=== PATIENT | female | born 1965 | race African-American/Black ===

== ENCOUNTER 2017-12-28 10:09 | Emergency (ER) | payer MEDICARE, OTHER ==
[2017-12-28] MEDS ORDERED: Sodium Chloride 0.9% 10 ML Syringe FLUSH PRN (10:37)
[2017-12-28] MEDS ORDERED: Famotidine 20 MG/2 ML SDV IVPUSH ONE (10:38)
[2017-12-28] MEDS ORDERED: Alum Hydrox/Mag Hydrox/Simeth 30 ML, Lidocaine 2% 15 ML PO ONE ×2 (10:38)
--- NOTE | 2017-12-28 11:12 | EDM.PDOC ---
ED HPI GENERAL MEDICAL PROBLEM - General Chief Complaint: Cardiovascular Problem Stated Complaint: HEADACHE SENT FROM CLINIC Time Seen by Provider: 12/28/17 10:32 Source of Information: Reports: Patient History Limitations: Reports: No Limitations - History of Present Illness INITIAL COMMENTS - FREE TEXT/NARRATIVE: The patient presents with a headache, heart burn and elevated blood pressure. The headache started about 4 days ago. It is located in the left side of her head. It is not severe it is just annoying. She denies any numbness or weakness. She has had headaches like this before when her blood pressure was up and they did some changes and she was better after that. She also has some heart burn in the mid chest. This started about 3 days ago. She had to sleep sitting up last night. She has had reflux before. She denies shortness of breath. She has no fever, chills, cough, abdominal pain, nausea or vomiting. Her blood pressure when she arrived here was 157/105. Onset: Gradual Duration: Day(s): (4) Location: Reports: Head, Chest Quality: Reports: Ache Severity: Mild Improves with: Reports: None Worsens with: Reports: None Associated Symptoms: Reports: Chest Pain, Headaches. Denies: Nausea/Vomiting, Shortness of Breath Left Temporal Pain Score (Numeric/FACES): 5 - Related Data Allergies Allergy/AdvReac Type Severity Reaction Status Date / Time prochlorperazine Allergy Anxiety Verified 12/28/17 10:23 [From Compazine] Home Meds: Home Meds Bisoprolol/Hydrochlorothiazide [Bisoprolol/HCTZ 5-6.25 MG] 1 tab PO DAILY [History] Losartan [Cozaar] 100 mg PO DAILY 12/28/17 [History] Past Medical History Cardiovascular History: Reports: Hypertension - Past Surgical History GI Surgical History: Reports: Appendectomy Female Surgical History: Reports: Section, Hysterectomy Musculoskeletal Surgical History: Reports: Other (See Below) Other Musculoskeletal Surgeries/Procedures:: ACL repair Social & Family History - Tobacco Use Smoking Status *Q: Never Smoker - Caffeine Use Caffeine Use: Reports: Coffee - Recreational Drug Use Recreational Drug Use: No ED ROS GENERAL - Review of Systems Review Of Systems: See Below Constitutional: Reports: No Symptoms HEENT: Reports: No Symptoms Respiratory: Reports: No Symptoms Cardiovascular: Reports: Chest Pain (Burning) Endocrine: Reports: No Symptoms GI/Abdominal: Reports: No Symptoms : Reports: No Symptoms Musculoskeletal: Reports: No Symptoms Skin: Reports: No Symptoms Neurological: Reports: Headache ED EXAM, GENERAL - Physical Exam Exam: See Below Exam Limited By: No Limitations General Appearance: Alert, No Apparent Distress Ears: Normal External Exam Nose: Normal Inspection Head: Atraumatic, Normocephalic Neck: Normal Inspection Respiratory/Chest: No Respiratory Distress, Lungs Clear, Normal Breath Sounds Cardiovascular: Regular Rate, Rhythm, No Edema, No Murmur GI/Abdominal: Soft, Non-Tender, No Organomegaly, No Mass Back Exam: Normal Inspection Extremities: Normal Inspection Neurological: Alert, Oriented, No Motor/Sensory Deficits EKG INTERPRETATION EKG Date: 12/28/17 Time: 10:55 Rhythm: NSR Rate (Beats/Min): 66 [place]: Normal P-Wave: Present QRS: Normal ST-T: Other (Flipped T waves in the anterior leads) Course - Vital Signs Last Recorded V/S: Last Vital Signs Temp 97.1 F 12/28/17 10:19 Pulse 75 12/28/17 10:19 Resp 18 12/28/17 10:19 BP 157/105 H 12/28/17 10:19 Pulse Ox 98 12/28/17 10:19 - Orders/Labs/Meds Orders: Active Orders 24 hr Category Date Time Status Cardiac Monitoring [RC] . DIRECTED Care 12/28/17 10:37 Active EKG Documentation Completion [RC] STAT Care 12/28/17 10:38 Active Peripheral IV Care [RC] . DIRECTED Care 12/28/17 10:38 Active Chest 1V Frontal [CR] Stat Exams 12/28/17 10:38 Taken Head wo Cont [CT] Stat Exams 12/28/17 10:39 Taken Sodium Chloride 0.9% [Saline Flush] Med 12/28/17 10:37 Active 10 ml FLUSH ASDIRECTED PRN Peripheral IV Insertion Adult [OM.PC] Stat Oth 12/28/17 10:37 Ordered Medication Orders Sodium Chloride (Saline Flush) 10 ml FLUSH ASDIRECTED PRN PRN Reason: Keep Vein Open Last Admin: 12/28/17 10:51 Dose: 10 ml Labs: Laboratory Tests 12/28/17 12/28/17 Range/Units 10:45 10:45 WBC 6.70 (3.98-10.04) K/mm3 RBC 5.02 (3.98-5.22) M/mm3 Hgb 13.8 (11.2-15.7) gm/L Hct 39.4 (34.1-44.9) % MCV 78.5 L (79.4-94.8) fl MCH 27.5 (25.6-32.2) pg MCHC 35.0 (32.2-35.5) g/dl RDW Std Deviation 40.1 (36.4-46.3) fL Plt Count 246 (182-369) K/mm3 MPV 11.4 (9.4-12.3) fl Neut % (Auto) 66.8 (34.0-71.1) % Lymph % (Auto) 26.3 (19.3-51.7) % [place] % (Auto) 5.8 (4.7-12.5) % Eos % (Auto) 0.7 (0.7-5.8) Baso % (Auto) 0.3 (0.1-1.2) % Neut # (Auto) 4.47 (1.56-6.13) K/mm3 Lymph # (Auto) 1.76 (1.18-3.74) K/mm3 [place] # (Auto) 0.39 H (0.24-0.36) K/mm3 Eos # (Auto) 0.05 (0.04-0.36) K/mm3 Baso # (Auto) 0.02 (0.01-0.08) K/mm3 Sodium 140 (136-145) mEq/L Potassium 3.5 (3.5-5.1) mEq/L Chloride 104 (98-107) mEq/L Carbon Dioxide 27 (21-32) mEq/L Anion Gap 12.5 (5-15) BUN 8 (7-18) mg/dL Creatinine 0.8 (0.55-1.02) mg/dL Est Cr Clr Drug Dosing 60.66 mL/min Estimated GFR (MDRD) > 60 (>60) mL/min BUN/Creatinine Ratio 10.0 L (14-18) Glucose 106 (74-106) mg/dL Calcium 9.5 (8.5-10.1) mg/dL Total Bilirubin 0.5 (0.2-1.0) mg/dL AST 20 (15-37) U/L ALT 30 (14-59) U/L Alkaline Phosphatase 66 (46-116) U/L Troponin I 0.018 (0.00-0.056) ng/mL Total Protein 7.6 (6.4-8.2) g/dl Albumin 3.7 (3.4-5.0) g/dl Globulin 3.9 gm/dL Albumin/Globulin Ratio 1.0 (1-2) Meds: Medications Generic Name Dose Route Start Last Admin Trade Name Freq PRN Reason Stop Dose Admin Sodium Chloride 10 ml 12/28/17 10:37 12/28/17 10:51 Saline Flush FLUSH 10 ml ASDIRECTED PRN Administration Keep Vein Open Discontinued Medications Generic Name Dose Route Start Last Admin Trade Name Freq PRN Reason Stop Dose Admin Al Hydroxide/Mg Hydroxide 30 0 ml 12/28/17 10:38 12/28/17 10:51 ml/ Lidocaine HCl 15 ml PO 12/28/17 10:39 45 ml ONETIME ONE Administration Famotidine 20 mg 12/28/17 10:38 12/28/17 10:51 Pepcid IVPUSH 12/28/17 10:39 20 mg ONETIME ONE Administration - Re-Assessments/Exams Free Text/Narrative Re-Assessment/Exam: 12/28/17 11:21 I ordered an IV saline lock, CT of her head, EKG, labs, pepcid 20mg IV and a GI cocktail. 12/28/17 12:18 Her CBC and CMP look good. Her troponin is negative. Her head CT looks good. She feels better. I will have her go up with her bisproprol/HCTZ to 2 pills daily and I will have her take some pepcid. I will have her follow up with Nita Solares next week. Departure - Departure Time of Disposition: 12:20 Disposition: Home, Self-Care 01 Condition: Good Clinical Impression: Atypical chest pain, Reflux esophagitis Hypertension Qualifiers: Hypertension type: essential hypertension Qualified Code(s): I10 - Essential ( primary) hypertension Headache Qualifiers: Headache type: unspecified Headache chronicity pattern: acute headache Intractability: not intractable Qualified Code(s): R51 - Headache Referrals: Nita Solares PA-C [Primary Care Provider] - 1 Week Forms: ED Department Discharge Additional Instructions: Take pepcid daily for 1 week. Avoid any spicy food. Take 2 of your bispropolol /hydrochlorothiazide daily. Keep taking the cozaar at the 100mg dose. Follow up with Nita Solares within 1 week. Please return if you are worse. - My Orders Last 24 Hours: My Active Orders 12/28/17 10:37 Cardiac Monitoring [RC] . DIRECTED Sodium Chloride 0.9% [Saline Flush] 10 ml FLUSH ASDIRECTED PRN Peripheral IV Insertion Adult [OM.PC] Stat 12/28/17 10:38 EKG Documentation Completion [RC] STAT Peripheral IV Care [RC] . DIRECTED Chest 1V Frontal [CR] Stat 12/28/17 10:39 Head wo Cont [CT] Stat - Assessment/Plan Last 24 Hours: My Active Orders 12/28/17 10:37 Cardiac Monitoring [RC] . DIRECTED Sodium Chloride 0.9% [Saline Flush] 10 ml FLUSH ASDIRECTED PRN Peripheral IV Insertion Adult [OM.PC] Stat 12/28/17 10:38 EKG Documentation Completion [RC] STAT Peripheral IV Care [RC] . DIRECTED Chest 1V Frontal [CR] Stat 12/28/17 10:39 Head wo Cont [CT] Stat
--- NOTE | 2017-12-30 08:01 | CR ---
Chest: Frontal view of the chest was obtained. Comparison: No prior chest x-ray. Slight increased density with left midchest is seen most likely due to focal atelectasis. Lungs otherwise are clear. Minimal scoliosis noted within the spine. Bony structures are otherwise grossly intact. Impression: 1. Findings most likely incidental as noted above. Nothing acute is otherwise seen. Diagnostic code #2
--- NOTE | 2017-12-30 08:01 | CT ---
Head CT Technique: Multiple axial sections through the brain were obtained. Intravenous contrast was not utilized. Comparison: Prior head CT study is not available. Findings: Ventricles along with basal cisterns and sulci over the convexities are within normal limits for the patient's age. No abnormal parenchymal densities are seen. No evidence of intracranial hemorrhage. No midline shift or mass effect is seen. Bone window settings were reviewed which show the visualized sinuses to appear clear. No acute calvarial abnormality is seen. Impression: 1. No acute intracranial abnormality is identified. Diagnostic code #1 I agree with preliminary report from [facility], finalized at 12/28/17, 1:08 PM Central Time
== END 2017-12-28 12:35 | disposition home or self-care (01) ==
LOC: JD.ED 10:09
DX: K21.0 Gastro-esophageal reflux disease with esophagitis (principal); I10 Essential (primary) hypertension; Z79.899 Other long term (current) drug therapy; Z88.8 Allergy status to other drugs, medicaments and biological substances
CPT/HCPCS: 36415; 70450; 71045; 80053; 84484; 85025; 93005; 96374; 99285; A9270; J7050; 93010; 99284-25